=== PATIENT | female | born 2000 | race Caucasian/White ===

== ENCOUNTER 2018-02-15 14:57 | Emergency (ER) | payer OTHER ==
[~2018-02-15] VITALS: Ht 170.2 cm; Wt 79.5 kg
[2018-02-15 15:00] VITALS: TEMP 98.4
[2018-02-15 16:16] VITALS: BP 121/78; PULSE 70
== END 2018-02-15 16:16 | disposition home or self-care (01) ==
LOC: COL.ER 14:57
DX: F07.81 Postconcussional syndrome (principal)